=== PATIENT | male | born 1955 | race Caucasian/White ===

== ENCOUNTER 2019-11-28 17:38 | Emergency (ER) | payer MEDICARE ==
--- NOTE | 2019-11-28 17:50 | ERPHSYRPT ---
- History of Present Illness Time Seen by Provider: 11/28/19 17:49 Source: patient Exam Limitations: no limitations Physician History: The patient is a 64-year-old male with a past medical history significant for diabetes and a prior stroke with a reported history of left-sided deficits for which she is currently not taking anticoagulants with the exception of taken as pirin for antiplatelet presents with a chief complaint of generalized weakness. Of note, the patient was at his wedding and reportedly was outside all day. He started feeling nauseous and feeling generalized weak but reportedly had no vomiting until EMS arrived and he had one episode of nonbilious nonbloody emesis. He denies any recent alcohol intake and states that he "does not drink" in addition to diarrhea, melena or hematochezia. He denies fever and chills, shortness of breath, chest pain and endorsed orthostasis. He states he takes his medication as prescribed in addition to his lisinopril. He has never had anything similar stabbing in the past. Is any recent illness. He is transported the patient to the emergency department and administer 1 L of normal saline prior to arrival and establish 2 18-gauge IVs in his AC. Allergies/Adverse Reactions: No Known Drug Allergies Allergy (Unverified 11/28/19 17:59) Home Medications: Atorvastatin Calcium 40 mg PO DAILY 11/28/19 [History] Metformin HCl [Fortamet] 1,000 mg PO BID 11/28/19 [History] glipiZIDE [Glipizide] 10 mg PO BID 11/28/19 [History] lisinopriL [Lisinopril] 5 mg PO DAILY 11/28/19 [History] Travel Risk - International Travel Have you traveled outside of the country in past 3 weeks: No - Coronavirus Screening Are you exhibiting any of the following symptoms?: No Close contact with a COVID-19 positive Pt in past 14-21 Days: No - Review of Systems Constitutional: Weakness, No Fever, No Chills Eyes: No Symptoms Respiratory: No Symptoms, No Stridor Cardiac: No Chest Pain, No Palpitations Abdominal/Gastrointestinal: Nausea, Vomiting, No Abdominal Pain, No Diarrhea Genitourinary Symptoms: No Symptoms Musculoskeletal: Back Pain Skin: No Symptoms Neurological: No Symptoms Psychological: No Symptoms Endocrine: Other (Thirst) Immunological/Allergic: No Symptoms All Other Systems: Reviewed and Negative - Past Medical History Pertinent Past Medical History: Yes - Nursing Vital Signs Nursing Vital Signs: Initial Vital Signs Temperature 98.1 F 11/28/19 17:40 Pulse Rate 102 H 11/28/19 17:40 Respiratory Rate 18 11/28/19 17:40 Blood Pressure 70/50 11/28/19 17:40 O2 Sat by Pulse Oximetry 97 11/28/19 17:40 Pain Scale Pain Intensity 0 - Physical Exam General Appearance: no apparent distress, alert Eye Exam: PERRL/EOMI, eyes nml inspection, No scleral icterus, No pale conjunctivae Ears, Nose, Throat Exam: normal ENT inspection, moist mucous membranes, No TMs normal, No pharynx normal, No pharyngeal erythema, No tonsillar exudate Neck Exam: normal inspection, non-tender, supple Respiratory Exam: normal breath sounds, lungs clear, airway intact, No chest tenderness, No respiratory distress, No accessory muscle use Cardiovascular Exam: tachycardia, other (Unable to palpate radial and DP pulses bilaterally, weak central pulses. ), No murmur, No friction rub, No gallop, No edema Gastrointestinal/Abdomen Exam: soft, No tenderness, No distention, No mass, No guarding Male Genitalia Exam: normal genitalia Rectal Exam: deferred Back Exam: normal inspection Extremity Exam: normal inspection Neurologic Exam: alert, oriented x 3, cooperative Skin Exam: normal color, other (Skin was cool), No warm, No cyanosis, No jaundice O2 Delivery: Room Air Procedures - Central Line Timeout: Performed Central Line Lumen: triple Lumen Size: 7 Indonesian Central Line Procedure: chlorahexadine prep, sterile drapes applied, sterile dressing applied, Aseptic Technique, Seldinger Technique Central Line Postion: femoral (R) Anesthesia: 1% Lidocaine cc's of anesthesia: 5 Ultrasound Guided Placement: No Complications: none Central Line Post Position: sutured, good blood return - Course Nursing assessment & vital signs reviewed: Yes EKG Interpreted by Me: RATE, Sinus Rhythm, NORMAL AXIS, NORMAL INTERVALS, Other (No evidence of STEMI and no evidence of acute myocardial ischemia or injury pattern) - Radiology Exams Chest X-ray Interpretation: Interpreted by me, Reviewed by me, Negative (No acute pathology identified) Ordered Tests: Active Orders 24 hr Category Date Time Status EKG-ER Only STAT Care 11/28/19 17:52 Active Becerra [Catheter-[place] Becerra] STAT Care 11/28/19 19:19 Active IV Insertion STAT Care 11/28/19 17:52 Active CHEST 1 VIEW (PORTABLE) Stat Exams 11/28/19 18:42 Taken BLOOD CULTURE Stat Lab 11/28/19 18:25 Received CBC W DIFF Stat Lab 11/28/19 18:25 Completed CMP Stat Lab 11/28/19 18:25 Completed CULTURE,URINE Stat Lab 11/28/19 20:29 Received LIPASE Stat Lab 11/28/19 18:25 Completed Lactic Acid Stat Lab 11/28/19 18:15 Completed Lactic Acid Stat Lab 11/28/19 20:24 Received NT PRO BNP Stat Lab 11/28/19 18:25 Completed TROPONIN Q3H Lab 11/28/19 18:25 Completed TROPONIN Q3H Lab 11/28/19 21:00 Ordered TROPONIN Q3H Lab 11/29/19 00:00 Ordered TROPONIN Q3H Lab 11/29/19 03:00 Ordered TROPONIN Q3H Lab 11/29/19 06:00 Ordered UA W/RFX UR CULTURE Stat Lab 11/28/19 20:29 Received Medication Summary Generic Name Dose Route Start Last Admin Trade Name Freq PRN Reason Stop Dose Admin Norepinephrine 4,000 mcg/ 504 mls @ 37.8 mls/hr 11/28/19 18:44 11/28/19 20:12 Dextrose IV 12/28/19 18:43 4 mcg/min .[id number] PRN 30.24 mls/hr SEVERE HYPOTENSION Titration Protocol 5 MCG/MIN Vancomycin HCl 2 gm in 400 mls @ 133.333 mls/hr 11/28/19 18:44 Vancomycin 2 Gram/400 Ml Bag IV 11/28/19 21:43 STAT ONE Lactated Ringer's 1,000 mls @ 150 mls/hr 11/28/19 19:30 11/28/19 19:23 Lactated Ringers IV 12/28/19 19:29 150 mls/hr .[id number] SCOT Administration Discontinued Medications Generic Name Dose Route Start Last Admin Trade Name Freq PRN Reason Stop Dose Admin Hydrocortisone Sodium Succinate 100 mg 11/28/19 20:25 Solu-Cortef 250mg IV 11/28/19 20:26 ONCE ONE Sodium Chloride Confirm 11/28/19 17:52 Sodium Chloride 0.9% 1000 Ml Administered 11/28/19 17:53 Dose 1,000 mls @ ud .ROUTE .STK-MED ONE Sodium Chloride 1,000 mls @ 999 mls/hr 11/28/19 17:52 11/28/19 18:15 Sodium Chloride 0.9% 1000 Ml IV 11/28/19 18:52 999 mls/hr .Q1H1M STA Administration Sodium Chloride Confirm 11/28/19 18:10 Sodium Chloride 0.9% 1000 Ml Administered 11/28/19 18:11 Dose 1,000 mls @ ud .ROUTE .STK-MED ONE Lactated Ringer's 1,000 mls @ 999 mls/hr 11/28/19 18:17 11/28/19 18:21 Lactated Ringers IV 11/28/19 19:17 999 mls/hr .Q1H1M ONE Administration Lactated Ringer's Confirm 11/28/19 18:20 Lactated Ringers Administered 11/28/19 18:21 Dose 1,000 mls @ ud IV .STK-MED ONE Piperacillin Sod/Tazobactam 100 mls @ 200 mls/hr 11/28/19 18:45 11/28/19 20:17 Sod 4.5 gm/ Sodium Chloride IV 11/28/19 19:14 200 mls/hr STAT ONE Administration Sodium Chloride Confirm 11/28/19 20:14 Sodium Chloride 100ml Mini-Bag Plus Administered 11/28/19 20:15 Dose 100 mls @ ud IV .STK-MED ONE Piperacillin Sod/Tazobactam Sod Confirm 11/28/19 20:14 Zosyn Inj Administered 11/28/19 20:15 Dose 4.5 gm IV .STK-MED ONE Lab/Rad Data: Laboratory Result Diagrams 11/28/19 18:25 11/28/19 18:25 Laboratory Results 11/28/19 11/28/19 11/28/19 Range/Units 18:25 18:25 18:25 WBC (4.0-10.5) K/mm3 RBC (4.1-5.6) M/mm3 Hgb (12.5-18.0) gm/dl Hct (42-50) % MCV (78-100) fl MCH (26-32) pg MCHC (32-36) g/dl RDW (11.5-14.0) % Plt Count (150-450) K/mm3 MPV (7.5-11.0) fl Gran % (36.0-66.0) % Eos # (Auto) (0-0.5) Absolute Lymphs (auto) (1.0-4.6) Absolute Monos (auto) (0.0-1.3) Lymphocytes % (24.0-44.0) % Monocytes % (0.0-12.0) % Eosinophils % (0.00-5.0) % Basophils % (0.0-0.4) % Absolute Granulocytes (1.4-6.9) Basophils # (0-0.4) Sodium (137-145) mmol/L Potassium (3.5-5.1) mmol/L Chloride (98-107) mmol/L Carbon Dioxide (22-30) mmol/L Anion Gap (5-15) MEQ/L BUN (9-20) mg/dL Creatinine (0.66-1.25) mg/dL Estimated GFR ML/MIN Glucose (74-106) mg/dL Lactic Acid (0.4-2.0) Calcium (8.4-10.2) mg/dL Total Bilirubin (0.2-1.3) mg/dL AST (17-59) U/L ALT (0-50) U/L Alkaline Phosphatase (38-126) U/L Troponin I 0.022 (0.000-0.034) ng/mL NT-Pro-B Natriuret Pep 386 (0-900) pg/mL Serum Total Protein (6.3-8.2) g/dL Albumin (3.5-5.0) g/dL Lipase (23-300) U/L ABO Group O Rh Factor POSITIVE Antibody Screen NEGATIVE (NEGATIVE) 11/28/19 11/28/19 11/28/19 Range/Units 18:25 18:25 18:15 WBC 15.7 H (4.0-10.5) K/mm3 RBC 4.52 (4.1-5.6) M/mm3 Hgb 14.6 (12.5-18.0) gm/dl Hct 42.8 (42-50) % MCV 94.7 (78-100) fl MCH 32.3 H (26-32) pg MCHC 34.1 (32-36) g/dl RDW 12.7 (11.5-14.0) % Plt Count 361 (150-450) K/mm3 MPV 10.0 (7.5-11.0) fl Gran % 73.8 H (36.0-66.0) % Eos # (Auto) 0.07 (0-0.5) Absolute Lymphs (auto) 3.03 (1.0-4.6) Absolute Monos (auto) 0.97 (0.0-1.3) Lymphocytes % 19.3 L (24.0-44.0) % Monocytes % 6.2 (0.0-12.0) % Eosinophils % 0.4 (0.00-5.0) % Basophils % 0.3 (0.0-0.4) % Absolute Granulocytes 11.58 H (1.4-6.9) Basophils # 0.04 (0-0.4) Sodium 131 L (137-145) mmol/L Potassium 4.0 (3.5-5.1) mmol/L Chloride 97 L (98-107) mmol/L Carbon Dioxide 21 L (22-30) mmol/L Anion Gap 17.0 H (5-15) MEQ/L BUN 6 L (9-20) mg/dL Creatinine 0.76 (0.66-1.25) mg/dL Estimated GFR > 60.0 ML/MIN Glucose 200 H (74-106) mg/dL Lactic Acid 5.6 H (0.4-2.0) Calcium 9.4 (8.4-10.2) mg/dL Total Bilirubin 0.70 (0.2-1.3) mg/dL AST 32 (17-59) U/L ALT 19 (0-50) U/L Alkaline Phosphatase 101 (38-126) U/L Troponin I (0.000-0.034) ng/mL NT-Pro-B Natriuret Pep (0-900) pg/mL Serum Total Protein 7.5 (6.3-8.2) g/dL Albumin 4.4 (3.5-5.0) g/dL Lipase 127 (23-300) U/L ABO Group Rh Factor Antibody Screen (NEGATIVE) - Progress Progress: improved Progress Note: 11/28/19 20:09 Triple lumen central line established in R femoral vein. Patient still hypotensive with systolic BP in the 90's despite 3 L of IV and being on 2 mcg/min of norepinephrine. Nurse instructed to increase norepinephrine to 4 mcg/min. 11/28/19 20:10 Patient informed of need to transfer to [facility] given we have no ICU beds. Patient consented to transfer. Nursing staff paging [facility] now. 11/28/19 20:18 Patient presents with undifferentiated hypotension and a complaint of generalized weakness that started today. He reportedly was feeling well yesterday but today he was outside at his daughter's wedding when his symptoms started. He is afebrile but appears to have evidence of a leukocytosis in addition to an elevated lactate and had no normotensive blood pressure after receiving 3 L of IV fluids and therefore was started on pressors consisting of norepinephrine at this time. It is unclear if he is currently in septic shock b ut I went ahead and treated empirically with broad-spectrum antibiotics. Ultimately, this could be severe dehydration with possible heat exhaustion or could be a combination of all the above complicated by the fact he takes lisinopril. His chest x-ray showed no evidence of pneumonia and I currently cannot find a source of infection at this time. Blood cultures are currently pending. The patient will necessitate transfer to [facility] given that we do not have any ICU capability at this time, specifically no ICU beds. Also, patient was deemed too unstable to go to [place] during his initial stay due to his hypotension. 11/28/19 20:[address] Aly, ED physician at [facility] and discussed the case with him. He agreed to accept the patient for transfer recommended hydrocortisone bolus IV, medication ordered. The patient will be transported by [facility] ambulance. 11/28/19 20:26 Radiology uploading the patient to the [facility]. 11/28/19 20:27 Still waiting on urine results. Tech calling lab to f/u on results 11/28/19 20:40 EMTLA/transfer paperwork completed. Discussed with Dr.: Other (Dr. Aly at [facility]) Counseled pt/family regarding: lab results, diagnosis, rad results - Departure Departure Disposition: Transfer ([facility]) Clinical Impression: Septic shock, Dehydration, Lactic acidosis, Hypotension, Metabolic acidosis, increased anion gap Condition: Critical Critical Care Time: Yes Critical Care Time(excluding separately billable procedures): Critical 75-104 mins Referrals: Provider,Unknown [Primary Care Provider] -
[2019-11-28] MEDS ORDERED: Sodium Chloride 0.9% 1000 ML 1,000 ML IV STA (17:52)
[2019-11-28] MEDS ORDERED: Sodium Chloride 0.9% 1000 ML 1,000 ML ONE ×2 (17:52→18:10)
[2019-11-28] MEDS ORDERED: Lactated Ringers 1,000 ML IV ONE ×2 (18:17→18:20)
[2019-11-28 18:40] LABS: Absolute Neutrophil Ct (ANC) 11.58 (1.4-6.9); BASOPHIL % 0.3 % (0.0-0.4); Basophil (Absolute #) 0.04 (0-0.4); Eosinophil % 0.4 % (0.00-5.0); Eosinophil (Absolute #) 0.07 (0-0.5); Hematocrit 42.8 % (42-50); Hemoglobin 14.6 gm/dl (12.5-18.0); Lymphocyte (Absolute #) 3.03 (1.0-4.6); Lymphocytes % 19.3 % (24.0-44.0); Mean Cell Volume 94.7 fl (78-100); Mean Corpuscular Hemoglobin 32.3 pg (26-32); Mean Corpuscular Hgb Concent. 34.1 g/dl (32-36); Monocyte (Absolute #) 0.97 (0.0-1.3); Monocytes % 6.2 % (0.0-12.0); Neutrophil % 73.8 % (36.0-66.0); Platelet Count 361 K/mm3 (150-450); Red Blood Count 4.52 M/mm3 (4.1-5.6); Red Cell Distribution Width 12.7 % (11.5-14.0); White Blood Count 15.7 K/mm3 (4.0-10.5)
[2019-11-28] MEDS ORDERED: LEVOPHED 4 MG/4 ML 4,000 MCG in Dextrose 5%/Water IV Soln. 500 ML 500 ML IV PRN (18:44)
[2019-11-28] MEDS ORDERED: VANCOMYCIN 2 GRAM/400 ML BAG 2 GM/400 ML PIGGYBACK IV ONE ×2 (18:44→21:15)
[2019-11-28] MEDS ORDERED: Zosyn INJ 4.5 GM in Sodium Chloride 100ML MINI-BAG PLUS 100 ML IV ONE (18:45)
[2019-11-28 18:57] LABS: ALBUMIN 4.4 g/dL (3.5-5.0); ALKALINE PHOSPHATASE 101 U/L (38-126); BLOOD UREA NITROGEN 6 mg/dL (9-20); CHLORIDE 97 mmol/L (98-107); Calcium 9.4 mg/dL (8.4-10.2); Carbon Dioxide 21 mmol/L (22-30); Creatinine 1 0.76 mg/dL (0.66-1.25); EST GLOMERULAR FILTRATION RATE > 60.0 ML/MIN; Glucose 200 mg/dL (74-106); LIPASE 127 U/L (23-300); SGOT/AST 32 U/L (17-59); SGPT/ALT 19 U/L (0-50); SODIUM 131 mmol/L (137-145); Total Protein 7.5 g/dL (6.3-8.2)
[2019-11-28] MEDS ORDERED: Lactated Ringers 1,000 ML IV SCH (19:30)
[2019-11-28 20:05] LABS: ABO TYPING O; Antibody Screen NEGATIVE (NEGATIVE); RH TYPING POSITIVE
[2019-11-28 20:12] VITALS: O2SAT 98
[2019-11-28] MEDS ORDERED: Sodium Chloride 100ML MINI-BAG PLUS 100 ML IV ONE (20:14)
[2019-11-28] MEDS ORDERED: Zosyn INJ IV ONE (20:14)
[2019-11-28] MEDS ORDERED: solu-CORTEF 250MG IV ONE (20:25)
[2019-11-28 20:45] LABS: Appearance CLEAR (CLEAR); Bilirubin NEGATIVE (NEGATIVE); Blood NEGATIVE Ery/ul (0-5); Glucose NEGATIVE (NEGATIVE); Hyaline Casts 0-2 /LPF (0-2); Ketones NEGATIVE (NEGATIVE); Leukocyte Esterase NEGATIVE (NEGATIVE); Mucus SLIGHT /HPF (NEGATIVE); Nitrite NEGATIVE (NEGATIVE); Protein,Urine Dip NEGATIVE (Negative); Specific Gravity 1.006 (1.005-1.025); Urobilinogen NEGATIVE mg/dL (0-1); WBC 0-2 /HPF (0-5)
[2019-11-28] MEDS ORDERED: solu-CORTEF 250MG ONE (21:14)
[2019-11-28 21:29] VITALS: BP 94/69; PULSE 102
--- NOTE | 2019-11-29 09:08 | XRAY ---
Indication: Hypotension. Comparison: None Portable chest demonstrates normal heart and lungs with a few incidental tiny calcified granulomas. Bony thorax intact.
== END 2019-11-28 21:05 | disposition short-term general hospital (02) ==
LOC: ED 17:38
DX: A41.9 Sepsis, unspecified organism (principal); E86.0 Dehydration; E87.2 Acidosis; I95.9 Hypotension, unspecified
CPT/HCPCS: 36000; 36415; 51702; 71045; 80053; 81001; 83605; 83690; 83880; 84484; 85025; 86850; 86900; 86901; 87040; 87086; 93005; 96360; 96361; 96365; 96366; 96367; 96374; 96375; 99285; 99291; 99292; J1720; J2543; J3370